=== PATIENT | male | born 1950 | race Caucasian/White ===

== ENCOUNTER → 2018-10-27 10:22 | Outpatient (CLI) | payer MEDICARE | END | disposition home or self-care (01) | LOC: D.CT 10:22 | DX: R93.89 Abnormal findings on diagnostic imaging of other specified body structures (principal) ==

== ENCOUNTER → 2018-11-30 07:55 | Outpatient (CLI) | payer MEDICARE | END | disposition home or self-care (01) | LOC: D.RAD 07:55 | DX: R19.07 Generalized intra-abdominal and pelvic swelling, mass and lump (principal); K57.30 Diverticulosis of large intestine without perforation or abscess without bleeding ==

== ENCOUNTER 2019-05-15 19:02 | Emergency (ER) | payer MEDICARE ==
[~2019-05-15] VITALS: Ht 172.7 cm; Wt 98.2 kg
[2019-05-15 19:09] VITALS: Ht 172.7 cm; Wt 98.2 kg
[2019-05-15] MEDS ORDERED: TOPROL XL50 MG PO (19:10)
[2019-05-15] MEDS ORDERED: PLAVIX75 MG PO (19:10)
[2019-05-15] MEDS ORDERED: FOLIC ACID1 MG PO (19:11)
[2019-05-15] MEDS ORDERED: PRINIVIL20 MG PO (19:11)
[2019-05-15] MEDS ORDERED: ECOTRIN325 MG PO (19:11)
[2019-05-15 19:41] LABS: BASOPHILS 0.3 % (0-2); EOSINOPHILS 0.4 % (0-7); HEMATOCRIT 48.8 % (42.0-54.0); HEMOGLOBIN 17.4 g/dL (13.5-17.5); IMMATURE GRANULOCYTES 0.7 % (0-5); LYMPHOCYTES 12.1 % (15-50); MCH 37.9 pg (26.0-34.0); MCHC 35.7 g/dL (31.0-37.0); MCV 106.3 fL (80.0-100.0); MEAN PLATELET VOLUME 10.8 fL (7.4-10.4); MONOCYTES 11.5 % (2-11); PLATELET COUNT 195 10x3/uL (130-400); RBC 4.59 10x6/uL (4.20-6.10); RDW 13.1 % (11.5-14.5); WBC 10.1 10x3/uL (4.8-10.8)
[2019-05-15 19:55] LABS: ALKALINE PHOSPHATASE 62 U/L (46-116); ALT (SGPT) 45 U/L (10-68); BILIRUBIN - TOTAL 1.49 mg/dL (0.2-1.3); CALC OSMOLALITY 282 mosm/kg (275-300); CALCIUM 8.7 mg/dL (8.5-10.1); CHLORIDE - SERUM 103 mmol/L (98-107); GLUCOSE 147 mg/dL (74-106); POTASSIUM - SERUM 3.3 mmol/L (3.5-5.1); PROTEIN - SERUM 7.1 g/dL (6.4-8.2); SODIUM 142 mmol/L (136-145); UREA NITROGEN 5 mg/dL (7-18); eGFR NON AFRICAN AMERICAN 79 mL/min (90-120)
[2019-05-15 19:58] LABS: TROPONIN-I < 0.017 ng/mL (0.000-0.060)
[2019-05-15] MEDS ORDERED: LOTREL 5-40 MG1 EACH PO ×2 (20:02→20:17)
[2019-05-15] MEDS ORDERED: TOPROL XL100 MG PO (20:02)
[2019-05-15 21:20] VITALS: BP 167/86
== END 2019-05-15 21:20 | disposition home or self-care (01) ==
LOC: D.ER 19:02
PROVIDERS: Emergency Medicine
DX: I10 Essential (primary) hypertension (principal)

== ENCOUNTER 2019-08-25 16:39 | Inpatient (IN) | payer MEDICARE ==
[~2019-08-25] VITALS: Ht 172.7 cm; Wt 99.8 kg
[~2019-08-25 16:39] MED LIST: ECOTRIN325 MG PO; FOLIC ACID1 MG PO; LOTREL 5-40 MG1 EACH PO; PLAVIX75 MG PO; PRINIVIL20 MG PO; TOPROL XL100 MG PO; TOPROL XL50 MG PO
[2019-08-25] MEDS ORDERED: KLONOPIN0.5 MG PO (17:02)
[2019-08-25] MEDS ORDERED: VITAMIN E1000 UNI1 PO (17:03)
[2019-08-25 17:10] VITALS: BP 140/70; BMI 33.5
[2019-08-25 18:11] LABS: BASOPHILS 0.2 % (0-2); EOSINOPHILS 0.1 % (0-7); HEMATOCRIT 44.7 % (42.0-54.0); HEMOGLOBIN 15.2 g/dL (13.5-17.5); IMMATURE GRANULOCYTES 0.3 % (0-5); LYMPHOCYTES 7.8 % (15-50); MCH 35.6 pg (26.0-34.0); MCV 104.7 fL (80.0-100.0); MEAN PLATELET VOLUME 10.6 fL (7.4-10.4); MONOCYTES 10.2 % (2-11); NEUTROPHILS 81.4 % (40-80); RBC 4.27 10x6/uL (4.20-6.10); RDW 12.5 % (11.5-14.5); WBC 16.7 10x3/uL (4.8-10.8)
[2019-08-25 18:25] LABS: PLATELET COUNT 330 10x3/uL (130-400)
[2019-08-25 18:36] LABS: ALBUMIN 2.9 g/dL (3.4-5.0); ALKALINE PHOSPHATASE 72 U/L (46-116); ALT (SGPT) 15 U/L (10-68); BILIRUBIN - TOTAL 2.37 mg/dL (0.2-1.3); C-REACTIVE PROTEIN 22.8 mg/dL (0.0-0.9); CALC OSMOLALITY 275 mosm/kg (275-300); CARBON DIOXIDE 31.4 mmol/L (21.0-32.0); CHLORIDE - SERUM 99 mmol/L (98-107); GLUCOSE 119 mg/dL (74-106); LDH 114 U/L (85-227); POTASSIUM - SERUM 4.4 mmol/L (3.5-5.1); PROTEIN - SERUM 7.2 g/dL (6.4-8.2); SODIUM 138 mmol/L (136-145); THYROID STIMULATING HORMONE 1.73 uIU/mL (0.36-3.74); UREA NITROGEN 11 mg/dL (7-18); eGFR NON AFRICAN AMERICAN 78 mL/min (90-120)
[2019-08-25 19:12] LABS: APTT 29.4 SECONDS (22.8-39.4); INR 1.13 (0.85-1.17)
[2019-08-25 19:14] LABS: D-DIMER-QUANTITATIVE 1.41 ug/mLFEU (0.20-0.54)
[2019-08-25 19:26] LABS: ERYTHROCYTE SEDIMENTATION RATE 74 mm/hr (0-20)
[2019-08-25 20:00] VITALS: BP 113/80
[2019-08-26 05:06] LABS: BASOPHILS 0 % (0-2); EOSINOPHILS 0 % (0-7); HEMATOCRIT 42.9 % (42.0-54.0); HEMOGLOBIN 14.7 g/dL (13.5-17.5); IMMATURE GRANULOCYTES 0.2 % (0-5); LYMPHOCYTES 3.5 % (15-50); MCH 35.3 pg (26.0-34.0); MCHC 34.3 g/dL (31.0-37.0); MCV 103.1 fL (80.0-100.0); MEAN PLATELET VOLUME 10.9 fL (7.4-10.4); NEUTROPHILS 94.3 % (40-80); PLATELET COUNT 332 10x3/uL (130-400); RBC 4.16 10x6/uL (4.20-6.10); WBC 13.7 10x3/uL (4.8-10.8)
[2019-08-26 05:53] LABS: CALCIUM 8.6 mg/dL (8.5-10.1); CARBON DIOXIDE 28.5 mmol/L (21.0-32.0); CHLORIDE - SERUM 100 mmol/L (98-107); CREATININE - SERUM 0.9 mg/dL (0.6-1.3); MAGNESIUM - SERUM 1.7 mg/dL (1.8-2.4); PHOSPHOROUS 3.5 mg/dL (2.5-4.9); POTASSIUM - SERUM 4.6 mmol/L (3.5-5.1); SODIUM 138 mmol/L (136-145); eGFR NON AFRICAN AMERICAN 89 mL/min (90-120)
[2019-08-26 06:05] LABS: CALC OSMOLALITY 280 mosm/kg (275-300); GLUCOSE 176 mg/dL (74-106); UREA NITROGEN 14 mg/dL (7-18)
[2019-08-26 13:11] VITALS: Ht 172.7 cm; Wt 99.8 kg
[2019-08-26 14:24] VITALS: BP 138/72; BP 151/70
[2019-08-26 15:51] LABS: APPEARANCE CLEAR (CLEAR); BILIRUBIN NEGATIVE (NEGATIVE); COLOR DK YELLOW (YELLOW); GLUCOSE NEGATIVE (NEGATIVE); KETONE NEGATIVE (NEGATIVE); NITRITE NEGATIVE (NEGATIVE); PROTEIN NEGATIVE (NEGATIVE); SPECIFIC GRAVITY 1.025 (1.005-1.020)
[2019-08-26 15:52] LABS: BACTERIA FEW /hpf (NEGATIVE); EPITHELIAL CELLS 0-5 /hpf (0-5); RED CELLS - URINE OCC /hpf (0-5); WHITE CELLS - URINE 0-5 /hpf (NEGATIVE)
[2019-08-26 16:23] VITALS: BP 144/76
[2019-08-26 20:00] VITALS: BP 135/70
[2019-08-27 04:00] VITALS: BP 154/87
[2019-08-27 05:45] LABS: BASOPHILS 0 % (0-2); EOSINOPHILS 0 % (0-7); HEMATOCRIT 41.6 % (42.0-54.0); HEMOGLOBIN 14.2 g/dL (13.5-17.5); IMMATURE GRANULOCYTES 0.2 % (0-5); LYMPHOCYTES 3.5 % (15-50); MCH 35.1 pg (26.0-34.0); MCHC 34.1 g/dL (31.0-37.0); MONOCYTES 2.4 % (2-11); NEUTROPHILS 93.9 % (40-80); PLATELET COUNT 341 10x3/uL (130-400); RBC 4.04 10x6/uL (4.20-6.10); RDW 12.1 % (11.5-14.5); WBC 13.6 10x3/uL (4.8-10.8)
[2019-08-27 06:17] LABS: ANION GAP 10.6 mmol/L (8-16); CALCIUM 8.2 mg/dL (8.5-10.1); CARBON DIOXIDE 26.5 mmol/L (21.0-32.0); CREATININE - SERUM 1.1 mg/dL (0.6-1.3); MAGNESIUM - SERUM 1.7 mg/dL (1.8-2.4); PHOSPHOROUS 2.7 mg/dL (2.5-4.9); POTASSIUM - SERUM 4.1 mmol/L (3.5-5.1)
[2019-08-27 08:35] VITALS: BP 162/80
[2019-08-27 12:09] LABS: ANA REFLEX - DIRECT Negative (Negative)
[2019-08-27] MEDS ORDERED: VIBRAMYCIN 100100 MG PO (12:17)
[2019-08-27] MEDS ORDERED: PROTONIX40 MG PO (12:19)
[2019-08-27] MEDS ORDERED: PREDNISONE10 MG PO (12:20)
[2019-08-27] MEDS ORDERED: HYDROCODON-ACE1 EA10 PO (12:21)
--- NOTE | 2019-08-27 15:00 | MORECARE ---
CASE MANAGEMENT DISCHARGE SUMMARY PATIENT: GABRIEL REYES UNIT: [id number] ADM DATE: 08/26/19 AGE: 69 : 49 SEX: M ROOM/BED: D.2216 AUTHOR: BROOKE WILDE PHYSICIAN: REFERRING PHYSICIAN: MAI ALLISON MD DATE OF SERVICE: 08/27/19 Discharge Plan Patient Name: GABRIEL REYES Facility: [facility]:[place] : 1950 Planned Disposition: Home or Self Care Anticipated Discharge Date: Discharge Date: Expected LOS: Initial Reviewer: [email or web address] Initial Review Date: 08/25/2019 Generated: 08/27/19 4:00 pm Comments DCP- Discharge Planning Updated by [email or web address]: Hailey [place] on 08/27/19 1:[address] Patient Name: GABRIEL REYES Admission Status: Urgent Accout number: [id number] Admission Date: 08-26-2019 : 1950 Admission Diagnosis:ELEVATED WHITE BLOOD CELL COUNT, UNSPECIFIED Attending: KEEGAN, Current LOS: 1 Anticipated DC Date: Planned Disposition: Home or Self Care Primary Insurance: [employer] PPO [employer] Discharge Planning Comments: CM met with patient to complete initial dc planning assessment. CM educated patient on the CM role and verbal consent given by patient to complete assessment. Patient lives at home where he is independent with his care. At discharge patient plans to return home and feels this is a safe discharge. CM discussed availability of home health, rehab services, and medical equipment. He has a walker and blood pressure machine. Patient denied known discharge needs at this time. CM will continue to follow and will assist as needed with dc plans/needs. Ski Tow Operator: Hailey [place] Patient Name: GABRIEL REYES Page [id number] at 1500 All edits/amendments must be made on the electronic document DICTATION DATE: 08/27/19 1500 SAS ADMINISTRATOR: LINWOOD 08/27/19 1500 RPT#: [id number] DC DATE: STATUS: ADM IN [facility] [address] [place] [address] END OF REPORT
[2019-08-30 14:09] LABS: EHRLICHIA CHAFF IGG Negative (Neg:<1:64); EHRLICHIA CHAFF IGM Negative (Neg:<1:20); HGE IGG TITER Negative (Neg:<1:64); HGE IGM TITER Negative (Neg:<1:20)
--- NOTE | 2019-08-30 14:51 | MORECARE ---
CASE MANAGEMENT DISCHARGE SUMMARY PATIENT: GABRIEL REYES UNIT: [id number] ADM DATE: 08/26/19 AGE: 69 : 49 SEX: M ROOM/BED: D.2216 AUTHOR: BROOKE WILDE PHYSICIAN: REFERRING PHYSICIAN: MAI ALLISON MD DATE OF SERVICE: 08/30/19 Discharge Plan Patient Name: GABRIEL REYES Facility: [facility]:[place] : 1950 Planned Disposition: Home or Self Care Anticipated Discharge Date: Discharge Date: 08/27/2019 Expected LOS: Initial Reviewer: [email or web address] Initial Review Date: 08/25/2019 Generated: 08/30/19 3:51 pm Comments DCP- Discharge Planning Updated by [email or web address]: Hailey [place] on 08/27/19 1:[address] Patient Name: GABRIEL REYES Admission Status: Urgent Accout number: [id number] Admission Date: 08-26-2019 : 1950 Admission Diagnosis:ELEVATED WHITE BLOOD CELL COUNT, UNSPECIFIED Attending: KEEGAN Current LOS: 1 Anticipated DC Date: Planned Disposition: Home or Self Care Primary Insurance: [employer] CHOICE PPO [facility] Discharge Planning Comments: CM met with patient to complete initial dc planning assessment. CM educated patient on the CM role and verbal consent given by patient to complete assessment. Patient lives at home where he is independent with his care. At discharge patient plans to return home and feels this is a safe discharge. CM discussed availability of home health, rehab services, and medical equipment. He has a walker and blood pressure machine. Patient denied known discharge needs at this time. CM will continue to follow and will assist as needed with dc plans/needs. Correspondence Coordinator: Hailey [place] Last DP export: 08/27/19 2:00 Patient Name: GABRIEL REYES Page [id number] at 1451 All edits/amendments must be made on the electronic document DICTATION DATE: 08/30/191450 HIG[address] CONSTRUCTION INSPECTOR: LINWOOD 08/30/19 1451 RPT#: [id number] DC DATE:10/18/19 STATUS: DIS IN [facility] [address] [place] [address] END OF REPORT
[2019-08-31 11:10] LABS: LYME WB - IGG P18 AB Absent (()); LYME WB - IGG P23 AB Absent (()); LYME WB - IGG P28 AB Absent (()); LYME WB - IGG P30 AB Absent (()); LYME WB - IGG P39 AB Absent (()); LYME WB - IGG P41 AB Absent (()); LYME WB - IGG P45 AB Present (()); LYME WB - IGG P58 AB Absent (()); LYME WB - IGG P66 AB Absent (()); LYME WB - IGG P93 AB Absent (()); LYME WB - IGG WB INTERP Negative (()); LYME WB - IGM P23 AB Absent (()); LYME WB - IGM P39 AB Absent (()); LYME WB - IGM P41 AB Absent (()); LYME WB - IGM WB INTERP Negative (())
[2019-09-02 11:10] LABS: F. TULARENSIS - IGG Negative (Negative); F. TULARENSIS - IGM Negative (Negative)
== END 2019-08-27 15:49 | disposition home or self-care (01) | DRG 603 ==
LOC: OBSVTIME 16:39 → D.MS 16:39
PROVIDERS: Family Medicine; ADMIT Family Medicine; ATTEND Family Medicine
DX: L03.116 Cellulitis of left lower limb (principal); D72.829 Elevated white blood cell count, unspecified; I10 Essential (primary) hypertension; E78.5 Hyperlipidemia, unspecified; I25.10 Atherosclerotic heart disease of native coronary artery without angina pectoris; M35.3 Polymyalgia rheumatica; E80.6 Other disorders of bilirubin metabolism